=== PATIENT | female | born 1935 | race Caucasian/White ===

== ENCOUNTER 2020-07-25 15:03 | Outpatient (CLI) | payer MEDICARE, SELFPAY ==
[2020-07-25 15:51] LABS: Basophils Percent Auto 0.1 % (0.2-1.2); Eosinophils Absolute Auto 0.1 K/mm3 (0-0.3); Eosinophils Percent Auto 1.5 % (0-4.4); Hematocrit 37.7 % (37.0-47.0); Hemoglobin 12.7 g/dL (12.0-15.0); Immature Granulocyte Absolute 0.03 K/mm3 (0.00-0.031); Immature Granulocyte Percent A 0.4 % (0-0.5); Lymphocytes Absolute Auto 1.51 K/mm3 (0.9-3.2); Lymphocytes Percent Auto 22.6 % (18.3-44.2); Mean Corpuscular HGB Conc 33.7 g/dl (32-36); Mean Corpuscular Hemoglobin 30.9 pg (26-34); Mean Corpuscular Volume 91.7 fl (80-100); Monocytes Absolute Auto 0.5 K/mm3 (0.1-0.6); Monocytes Percent Auto 8.1 % (2.6-8.5); Neutrophils Absolute Auto 4.5 K/mm3 (1.3-6.7); Neutrophils Percent Auto 67.3 % (45.5-73.1); Platelet Count Result 244 k/mm3 (150-375); Red Blood Count 4.11 M/mm3 (4.2-5.4); Red Cell Distribution Width 14.1 % (11.5-14.5); White Blood Count 6.7 K/mm3 (4.5-10.0)
[2020-07-25 16:04] LABS: Alanine Aminotransferase 19 U/L (4-35); Albumin Level 4.1 g/dL (3.5-5.1); Alkaline Phosphatase 84 U/L (38-126); Anion Gap 9 mmol/L (8-16); Aspartate Amino Transferase 29 U/L (14-36); Bilirubin,Total 0.5 mg/dL (0.2-1.3); Blood Urea Nitrogen 16 mg/dL (7-17); Calcium 8.8 mg/dL (8.4-10.2); Carbon Dioxide 28 mmol/L (22-30); Chloride 104 mmol/L (98-107); Cholesterol 244 mg/dL (0-200); Estimated Glomerular Filt Rate 60; Glucose 100 mg/dL (65-105); HDL Direct 50 mg/dL; Potassium 3.1 mmol/L (3.4-5.0); Sodium 141 mmol/L (137-145); Triglycerides 154 mg/dL (<150)
[2020-07-25 16:13] LABS: Add Urine Microscopic? YES; Appearance Urine Clear (Clear); Bilirubin Urine Negative (Negative); Blood Urine 1+ (Negative); Color Urine Yellow (Yellow); Glucose Urine UA Negative (Negative); Ketones Urine Negative (Negative); Leukocyte Esterase Ur 3+ LEU/UL (NEGATIVE); Mucus Urine Few /lpf; Nitrate Urine Negative (Negative); Protein Urine 1+ mg/dL (Negative); Specific Grav Ur 1.025 (1.001-1.035); Squamous Epithelial Cell Urine Moderate /hpf (Few); Urobilinogen Urine Negative mg/dL (<2.0); WBC Urine 51-75 /hpf (0-3)
[2020-07-25 16:20] LABS: LDL Cholesterol Direct 168 mg/dL
== END 2020-07-25 15:04 | disposition home or self-care (01) ==
LOC: ANHLAB 15:05
PROVIDERS: PCP Family Medicine; Visit Provider Nurse Practitioner Family
DX: E03.9 Hypothyroidism, unspecified (principal); N39.0 Urinary tract infection, site not specified; E78.2 Mixed hyperlipidemia; I10 Essential (primary) hypertension
CPT/HCPCS: 36415; 80053; 80061; 81001; 84443; 85025; 87077; 87086; 87088; 87186

== ENCOUNTER → 2020-10-05 15:38 | Outpatient (CLI) | payer MEDICARE, SELFPAY ==
--- NOTE | ~2020-10-05 | MM_ITS ---
EXAMINATION: MM screening kvng BI w derek HISTORY: Screening mammogram TECHNIQUE: Craniocaudal and mediolateral oblique 3-D tomosynthesis images were obtained and synthetic 2-D images were generated. CAD analysis was submitted and interpreted. COMPARISON: 01/15/2012, 10/03/2009 bilateral digital screening mammogram examinations BREAST PARENCHYMAL COMPOSITION: There are scattered areas of fibroglandular density. FINDINGS: .... There is no evidence of suspicious mass, calcification, or architectural distortion to suggest malignancy in either breast. There has been no suspicious interval change. IMPRESSION: 1. No mammographic evidence of malignancy. 2. Recommend routine screening mammography in one year. BI-RADS Category 1: Negative Reviewed, dictated and finalized at location A.
== END ==
PROVIDERS: PCP Family Medicine; Visit Provider Family Medicine
DX: Z12.31 Encounter for screening mammogram for malignant neoplasm of breast (principal)
CPT/HCPCS: 77063; 77067

== ENCOUNTER 2021-07-07 08:33 | Emergency (ER) | payer MEDICARE, SELFPAY ==
--- NOTE | ~2021-07-07 | XR_ITS ---
EXAMINATION: XR_CERV2-3V_CR DATE: 07/07/2021 09:27 INDICATION: Neck pain. Fall 2 days ago. TECHNIQUE: 3 views of cervical spine were obtained. COMPARISON: None. FINDINGS: There is 8 degrees dextrocurvature of cervical spine. There is 2 mm retrolisthesis of C5 on C6 and 2 mm anterolisthesis of C7 on T1. Vertebral body heights are normal. There is severely decrea sed disc height from C3-C4 through C6-C7 and moderate to severely decreased disc height at C7-T1. The re is interbody fusion at C3-C4. There is severe bilateral uncovertebral joint osteoarthritis from C4 -C5 through C6-C7. There is multilevel facet joint osteoarthritis, severe at multiple levels. There i s mild central canal stenosis at C5-C6 and C6-C7. No prevertebral soft tissue swelling. IMPRESSION: 1. Severe cervical spondylosis. Reviewed, dictated and finalized at location A. TENANCE REPAIRMAN
--- NOTE | ~2021-07-07 | XR_ITS ---
EXAMINATION: XR chest 2V DATE: 07/07/2021 09:26 INDICATION: Neck pain. TECHNIQUE: Frontal and lateral views of the chest were obtained. COMPARISON: Chest 2 views 05/08/2019 FINDINGS: There is mild atelectasis in the lower lung zones. No pleural effusion or pneumothorax. The heart size is normal. There is mild chronic anterior wedging of T12. IMPRESSION: 1. Mild atelectasis in the lower lung zones. Reviewed, dictated and finalized at location A. T METAL HELPER
[2021-07-07 08:37] VITALS: BP 194/86; PULSE 69; RESP 13; TEMP 36.3; O2SAT 100
--- NOTE | 2021-07-07 08:42 | ECG_ITS ---
Measurements Intervals [place] Rate: 62 P: -49 UT: 161 QRS: 4 QRSD: 110 T: -12 QT: 453 QTc: 463 Interpretive Statements SINUS RHYTHM BORDERLINE R WAVE PROGRESSION, ANTERIOR LEADS T WAVE ABNORMALITY IN ANTERIOR LEADS- CONSIDER ISCHEMIA BASELINE ARTIFACT- I, II, III, AVR, AVF, V1, V3-V6 ABNORMAL ECG Electronically Signed On 07-07-2021 12:16:19 TEST TECH by Sergey Castellano D.O.
[2021-07-07] MEDS: CYCLOBENZAPRINE HCL 10 MG TABLET 5 MG PO (09:03)
[2021-07-07] MEDS: KETOROLAC 15 MG/ML VIAL (*BKC) IV PUSH (09:03)
[2021-07-07 09:22] LABS: Basophils Percent Auto 0.3 % (0.2-1.2); Eosinophils Absolute Auto 0.1 K/mm3 (0-0.3); Eosinophils Percent Auto 0.9 % (0-4.4); Hematocrit 42.3 % (37.0-47.0); Immature Granulocyte Absolute 0.03 K/mm3 (0.00-0.031); Immature Granulocyte Percent A 0.4 % (0-0.5); Lymphocytes Absolute Auto 2.02 K/mm3 (0.9-3.2); Lymphocytes Percent Auto 25.9 % (18.3-44.2); Mean Corpuscular HGB Conc 33.1 g/dl (32-36); Mean Corpuscular Hemoglobin 31.8 pg (26-34); Mean Corpuscular Volume 96.1 fl (80-100); Mean Platelet Volume 9.3 fl (7.4-10.4); Monocytes Absolute Auto 0.5 K/mm3 (0.1-0.6); Monocytes Percent Auto 6.4 % (2.6-8.5); Neutrophils Absolute Auto 5.2 K/mm3 (1.3-6.7); Neutrophils Percent Auto 66.1 % (45.5-73.1); Platelet Count Result 221 k/mm3 (150-375); Red Cell Distribution Width 14.4 % (11.5-14.5); White Blood Count 7.8 K/mm3 (4.5-10.0)
[2021-07-07 09:35] LABS: Alanine Aminotransferase 23 U/L (4-35); Alkaline Phosphatase 126 U/L (38-126); Anion Gap 10 mmol/L (8-16); Aspartate Amino Transferase 34 U/L (14-36); Bilirubin,Total 0.6 mg/dL (0.2-1.3); Blood Urea Nitrogen 12 mg/dL (7-17); Calcium 9.2 mg/dL (8.4-10.2); Carbon Dioxide 28 mmol/L (22-30); Chloride 103 mmol/L (98-107); Estimated CRCL calculation 35 ml/min; Estimated Glomerular Filt Rate > 60; Glucose 105 mg/dL (65-110); Potassium 3.2 mmol/L (3.4-5.0); Sodium 141 mmol/L (137-145)
[2021-07-07 10:10] VITALS: BP 179/76; PULSE 67; RESP 15; O2SAT 100
[2021-07-07 11:20] VITALS: BP 162/80; PULSE 65; RESP 14; O2SAT 98
[2021-07-07 12:27] VITALS: BP 150/77; PULSE 74; RESP 15; O2SAT 97
--- NOTE | 2021-07-07 12:39 | ED.GENADULT ---
HPI - General Adult General Chief complaint: Neck Pain/Injury Stated complaint: back/neck pain Time Seen by Provider: 07/07/21 08:36 History of Present Illness HPI narrative: Patient is an 85-year-old female who presents ER with neck pain. Began this morning. Worse with turning her head and trying to put on her shirt. No numbness or tingling in the arms or legs but this is limited report given the fact the patient is demented. No alleviating factors noted. Patient with elevated blood pressure here, chart review shows elevated blood pressures with PCP, patient has history of medical noncompliance with medication. Daughter present and is attempting to obtain guardianship over the patient as well as the patient's who is chronically ill. Related Data Home Medications Medication Instructions Recorded Confirmed aspirin 325 mg tablet 325 mg PO DAILY 05/20/19 04/03/21 dicyclomine 10 mg capsule 10 mg PO QID PRN 05/20/19 04/03/21 lisinopril 10 mg tablet 10 mg PO DAILY 05/20/19 04/03/21 Allergies Allergy/AdvReac Type Severity Reaction Status Date / Time No Known Allergies Allergy Verified 04/03/21 13:08 Review of Systems Review of Systems: ROS unobtainable: Yes unobtainable due to mental status PMFSH Past Medical History Medical History (Updated 07/07/21 @ 12:45 by Murali Webster MD) Acquired hypothyroidism Agitated depression B12 deficiency Early onset Alzheimer's dementia without behavioral disturbance Essential (primary) hypertension History of kidney stones Mixed hyperlipidemia Family History Family History Sibling Patient's brother is in good health Family history of hypothyroidism Family history of kidney stones Father Acute myocardial infarction, Onset Age: 64 Patient's father is Mother Family history of diabetes mellitus in first degree relative Social History Social History Smoking status: Never smoker Alcohol intake: never Substance use: never Substance use type: does not use Gender identity (if verbalized by the patient): Female Exam Narrative: GENERAL: Well-appearing, well-nourished, and in no acute distress. HEAD: Normocephalic, atraumatic. NECK: Supple. Increased pain in the paraspinal musculature with turning head laterally. No midline tenderness. CHEST: Clear to auscultation. No respiratory distress. HEART: Regular rate and rhythm. Normal peripheral pulses. EXTREMITIES: Normal range of motion. No edema. NEURO: Alert and oriented x2. PSYCH: Normal mood and affect. Course Course Emergency Course: Patient resting comfortably, feels improved with anti-inflammatories and Flexeril. Discharge home. Vital Signs Vital signs: Vital Signs Temperature 97.4 F L 07/07/21 08:37 Pulse Rate 69 07/07/21 08:37 Respiratory Rate 13 07/07/21 08:37 Blood Pressure 194/86 H 07/07/21 08:37 Pulse Oximetry 100 07/07/21 08:37 Temperature 97.4 F L 07/07/21 08:37 Pulse Rate 74 07/07/21 12:27 Respiratory Rate 15 07/07/21 12:27 Blood Pressure 150/77 H 07/07/21 12:27 Pulse Oximetry 97 07/07/21 12:27 Medical Decision Making Vital Signs Vital Signs: Vital Signs Temperature 97.4 F L 07/07/21 08:37 Pulse Rate 69 07/07/21 08:37 Respiratory Rate 13 07/07/21 08:37 Blood Pressure 194/86 H 07/07/21 08:37 Pulse Oximetry 100 07/07/21 08:37 Temperature 97.4 F L 07/07/21 08:37 Pulse Rate 74 07/07/21 12:27 Respiratory Rate 15 07/07/21 12:27 Blood Pressure 150/77 H 07/07/21 12:27 Pulse Oximetry 97 07/07/21 12:27 Lab Data Result diagrams: 07/07/21 09:06 07/07/21 09:06 Labs: Lab Results 07/07/21 07/07/21 Range/Units 09:06 09:06 WBC 7.8 (4.5-10.0) K/mm3 RBC 4.40 (4.2-5.4) M/mm3 Hgb 14.0 (12.0-15.0) g/dL Hct 42.3 (37.0-47.0) % MCV 96.1 (80-
[2021-07-07 13:04] VITALS: BP 150/77; PULSE 73; RESP 18; O2SAT 97
== END 2021-07-07 13:06 | disposition home or self-care (01) ==
PROVIDERS: Emergency Provider Emergency Medicine; PCP Family Medicine
DX: M54.2 Cervicalgia (principal); E03.9 Hypothyroidism, unspecified; G30.0 Alzheimer's disease with early onset; F02.80 Dementia in other diseases classified elsewhere, unspecified severity, without behavioral disturbance, psychotic disturbance, mood disturbance, and anxiety; I10 Essential (primary) hypertension; Z87.442 Personal history of urinary calculi; E53.8 Deficiency of other specified B group vitamins; E78.2 Mixed hyperlipidemia; M47.12 Other spondylosis with myelopathy, cervical region; Z79.82 Long term (current) use of aspirin; R94.31 Abnormal electrocardiogram [ECG] [EKG]
CPT/HCPCS: 36415; 71046; 72040; 80053; 85025; 93005; 96374; 99284; A9270; J1885

== ENCOUNTER 2022-04-23 14:45 | Emergency (ER) | payer MEDICARE, SELFPAY ==
--- NOTE | ~2022-04-23 | CT_ITS ---
EXAMINATION: CT brain wo con DATE: 04/23/2022 16:47 INDICATION: Head injury. TECHNIQUE: Computed tomography (CT) of the head was performed without intravenous contrast. The mA wa s adjusted according to patient size. Iterative reconstruction technique was employed. The dose-lengt h product was 605.33 mGy-cm. COMPARISON: Head CT 05/10/2016 FINDINGS: There is no intracranial hemorrhage, acute infarction, or abnormal intracranial mass lesion . There is an infarct in the body of right caudate nucleus, likely old. There are scattered areas of low attenuation in the cerebral white matter, which is within normal limits for the patient's age. Th e ventricles are normal in size. There are likely changes of ocular lens replacement surgeries. There is mild mucosal thickening in the ethmoid sinuses. The mastoid air cells are normal. IMPRESSION: 1. 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 Reviewed, dictated and finalized at location A.
--- NOTE | ~2022-04-23 | CT_ITS ---
EXAMINATION: CT cervical spine wo con DATE: 04/23/2022 16:58 INDICATION: Neck pain. Fall. TECHNIQUE: Computed tomography (CT) of the cervical spine was performed without intravenous contrast. Automated exposure control and iterative reconstruction technique were employed. The dose-length pro duct was 129.11 mGy-cm. COMPARISON: None FINDINGS: There is mild scarring at the lung apices. There is 11 degrees dextroscoliosis of cervical spine. There is 2 mm retrolisthesis of C5 on C6. There is interbody fusion at C3-C4. There is severel y decreased disc height at C4-C5, C5-C6, and C6-C7. The following disc levels are specifically discus sed: C2-C3: There is mild bilateral uncovertebral joint osteoarthritis. There is severe bilateral facet korin int osteoarthritis. There is mild bilateral neural foraminal stenosis. There is mild central canal st enosis. C3-C4: There is ankylosis of the uncovertebral joints with moderate hypertrophy. There is ankylosis o f the facet joints with moderate hypertrophy. There is mild bilateral neural foraminal stenosis. Ther e is mild central canal stenosis. C4-C5: There is severe bilateral uncovertebral joint osteoarthritis. There is mild right and severe l eft facet joint osteoarthritis. There is mild right and moderate left neural foraminal stenosis. Ther e is mild central canal stenosis. C5-C6: There is severe bilateral uncovertebral joint osteoarthritis. There is moderate bilateral face t joint osteoarthritis. There is mild bilateral neural foraminal stenosis. There is moderate central canal stenosis. C6-C7: There is severe bilateral uncovertebral joint osteoarthritis. There is mild bilateral facet korin int osteoarthritis. There is mild bilateral neural foraminal stenosis. There is mild central canal st enosis. C7-T1: There is mild bilateral uncovertebral joint osteoarthritis. There is severe right and moderate left facet joint osteoarthritis. There is mild bilateral neural foraminal stenosis. There is no cent ral canal stenosis. IMPRESSION: 1. No fracture. 2. Severe cervical spondylosis. Reviewed, dictated and finalized at location A.
--- NOTE | ~2022-04-23 | CT_ITS ---
EXAMINATION: CT lumbar spine wo con DATE: 04/23/2022 16:59 INDICATION: Low back tenderness. Fall. TECHNIQUE: Computed tomography (CT) of the lumbar spine was performed without intravenous contrast. A utomated exposure control and iterative reconstruction technique were employed. The dose-length produ ct was 851.40 mGy-cm. COMPARISON: None FINDINGS: There is a 5 mm stone in right kidney. There is a 2 mm stone in left kidney. There is 12 de grees dextroscoliosis of lumbar spine. There is 3 mm retrolisthesis of L5 on S1. There is mild chroni c anterior wedging of T11 and T12 vertebral bodies. There is moderately decreased disc height at T12- L1, severely decreased disc height at L1-L2 and L2-L3, moderately decreased disc height at L3-L4, and severely decreased disc height at L4-L5 and L5-S1 with endplate remodeling. The following disc level s are specifically discussed: L1-L2: The disc is bulging. There is mild bilateral facet joint osteoarthritis. There is mild bilater al neural foraminal stenosis. There is mild central canal stenosis. L2-L3: The disc is bulging. There is moderate bilateral facet joint osteoarthritis. There is mild rig ht and moderate left neural foraminal stenosis. There is mild central canal stenosis. L3-L4: The disc is bulging. There is severe right and mild left facet joint osteoarthritis. There is mild bilateral neural foraminal stenosis. There is mild central canal stenosis. L4-L5: The disc is bulging. There is severe right and mild left facet joint osteoarthritis. There is moderate right and mild left neural foraminal stenosis. There is mild central canal stenosis. L5-S1: The disc is bulging. There is mild bilateral facet joint osteoarthritis. There is moderate norma ateral neural foraminal stenosis. There is mild central canal stenosis. IMPRESSION: 1. No fracture. 2. Severe lumbar spondylosis. 3. Lumbar dextroscoliosis. Reviewed, dictated and finalized at location A.
[2022-04-23 14:57] VITALS: BP 148/86; PULSE 90; RESP 16; O2SAT 98
[2022-04-23 16:00] VITALS: BP 181/88; PULSE 97; RESP 16; O2SAT 95
--- NOTE | 2022-04-23 16:27 | PC.NURSE ---
Patient complains of lower back pain. Patient states she is better now and wants to go home.
--- NOTE | 2022-04-23 17:12 | ED.FALL ---
HPI - Fall General Chief Complaint: Fall Stated Complaint: fall Time Seen by Provider: 04/23/22 16:00 History of Present Illness HPI Narrative: Patient states she tripped and fell at the care home today, she is denying pain or any complaints other than to her lower back. Related Data Home Medications Medication Instructions Recorded Confirmed aspirin 325 mg tablet 325 mg PO DAILY 05/20/19 11/13/21 dicyclomine 10 mg capsule 10 mg PO QID PRN 05/20/19 11/13/21 Allergies Allergy/AdvReac Type Severity Reaction Status Date / Time No Known Allergies Allergy Verified 11/13/21 13:24 Review of Systems Review of Systems: CONST: No fever. HEENT: No sore throat C/V: No chest pain RESP: No cough GI: No abdominal pain : No dysuria. M/S: Lower back pain SKIN: No rash. NEURO: [No headache or focal numbness or weakness] PSYCH: [No depression] PMFSH Past Medical History Medical History Acquired hypothyroidism Agitated depression B12 deficiency Early onset Alzheimer's dementia without behavioral disturbance Essential (primary) hypertension History of kidney stones Mixed hyperlipidemia Family History Family History Sibling Patient's brother is in good health Family history of hypothyroidism Family history of kidney stones Father Acute myocardial infarction, Onset Age: 64 Patient's father is Mother Family history of diabetes mellitus in first degree relative Social History Social History Smoking status: Never smoker Alcohol intake: never Substance use: never Substance use type: does not use Gender identity (if verbalized by the patient): Female Course Vital Signs Vital signs: Vital Signs Pulse Rate 90 04/23/22 14:57 Respiratory Rate 16 04/23/22 14:57 Blood Pressure 148/86 H 04/23/22 14:57 Pulse Oximetry 98 04/23/22 14:57 Pulse Rate 97 04/23/22 16:00 Respiratory Rate 16 04/23/22 16:00 Blood Pressure 181/88 H 04/23/22 16:00 Pulse Oximetry 95 04/23/22 16:00 MDM - Fall MDM Narrative Medical decision making narrative: 86-year-old female presents after fall, vital signs stable and on exam she only has some discomfort around her lower back, as she is not a reliable historian I will obtain CT head, C-spine, L-spine. These are negative, patient is ambulating and in fact had managed to walk out of her room earlier and walk all over the ER requiring re-direction. Stable for discharge with return precautions. Discharge Plan Discharge Clinical Impression: Fall, Contusion of lower back Patient Disposition: NH Fpc/Asst Living Condition: Stable Instructions: Antibiotic Form, Fall Prevention for Older Adults (ED) Additional Instructions: Please follow up with your doctor and you can always return for any further issues. Prescriptions: No Action aspirin 325 mg tablet 325 mg PO DAILY dicyclomine 10 mg capsule 10 mg PO QID PRN levothyroxine 88 mcg tablet See Rx Instructions .ROUTE .COMPLEX Qty: 90 2RF Dose Instruction: TAKE 1 TABLET BY MOUTH EVERY DAY Rx Instructions: TAKE 1 TABLET BY MOUTH EVERY DAY cyclobenzaprine 5 mg tablet 5 mg PO TID PRN (Reason: muscle spasm) Qty: 14 0RF ibuprofen 600 mg tablet 600 mg PO TID PRN (Reason: pain) Qty: 14 0RF trazodone 100 mg tablet 100 mg PO QHS Qty: 90 2RF lisinopril 10 mg tablet 10 mg PO DAILY Qty: 90 0RF sertraline [Zoloft] 25 mg tablet 25 mg PO DAILY Qty: 30 2RF Rx Instructions: at bedtime Follow-up/Referrals: Juan Sue MD [Primary Care Provider] - 2 Days
--- NOTE | 2022-04-23 17:26 | PC.NURSE ---
Attempted to call [facility] X2 with no answer.
== END 2022-04-23 17:38 ==
PROVIDERS: Emergency Provider Emergency Medicine; PCP Family Medicine
DX: S30.0XXA Contusion of lower back and pelvis, initial encounter (principal); G30.0 Alzheimer's disease with early onset; F02.80 Dementia in other diseases classified elsewhere, unspecified severity, without behavioral disturbance, psychotic disturbance, mood disturbance, and anxiety; I10 Essential (primary) hypertension; E03.9 Hypothyroidism, unspecified; E53.8 Deficiency of other specified B group vitamins; Z87.442 Personal history of urinary calculi; E78.2 Mixed hyperlipidemia; M47.812 Spondylosis without myelopathy or radiculopathy, cervical region; M47.816 Spondylosis without myelopathy or radiculopathy, lumbar region; W01.0XXA Fall on same level from slipping, tripping and stumbling without subsequent striking against object, initial encounter
CPT/HCPCS: 70450; 72125; 72131; 99284

== ENCOUNTER 2022-05-03 15:18 | Observation (INO) | payer MEDICARE, SELFPAY ==
[2022-05-03] VITALS (43 sets, daily range): BP systolic 139–199; BP diastolic 70–98; PULSE 78–95; RESP 12–23; TEMP 36.4–36.8; O2SAT 93–100; BMI 19.9
--- NOTE | ~2022-05-03 | CT_ITS ---
EXAMINATION: CT cervical spine wo con DATE: 05/03/2022 17:14 INDICATION: Fall with head injury TECHNIQUE: Computed tomography (CT) of the cervical spine was performed without intravenous contrast. Automated exposure control and iterative reconstruction technique were employed. The dose-length pro duct was 193.74 mGy-cm. COMPARISON: 04/23/2022 FINDINGS: Severe osteoarthritis at the atlantoaxial articulation. Partially visualized mild upper thoracic levo curvature. Unchanged 2 mm retrolisthesis C5 on C6. Interbody fusion at C3-C4 as well as fusion across the bilateral C3-C4 facet joints. Vertebral body heights are normal. No fractures. Severe disc heigh t loss at C4-C5, C5-C6 and C6-C7 with prominent Modic type III sclerotic endplate changes at C4-C5. M ild disc height loss at C7-T1. Multilevel moderate to severe cervical facet and uncovertebral osteoar thritis. See the very recent prior CT report for level by level analysis. Small amount of atheroscler otic calcification at the left carotid bulb. Cervical soft tissues are otherwise unremarkable. Mild b iapical pleural-parenchymal scarring IMPRESSION: 1. Severe cervical spondylosis. No acute osseous abnormality. Reviewed, dictated and finalized at location B.
--- NOTE | ~2022-05-03 | XR_ITS ---
XR abdomen/kub 1V DATE: 05/03/2022 18:51 INDICATION: Abdominal pain, constipation TECHNIQUE: Portable supine AP single view COMPARISON: 11/17/2018 CT abdomen pelvis 11/18/2018 obstructive series FINDINGS: There is numerous gas pattern is mild and colon segments and a moderate amount of fecal mat erial in the colon. No bowel obstruction is evident. The psoas shadows are intact. No visceromegaly i s detected. Diffuse osteopenia. There is osteopenia. There is multilevel degenerative disc disease of the lumbar spine. IMPRESSION: Nonspecific abdomen Reviewed, dictated and finalized at Location A. Reviewed, dictated and finalized at location A. IMPRESSION: Nonspecific abdomen
--- NOTE | ~2022-05-03 | XR_ITS ---
XR hip BI 2V w AP pelvis DATE: 05/03/2022 17:33 INDICATION: Fall. Hip pain. TECHNIQUE: AP pelvis. AP and lateral views of each hip. COMPARISON: None FINDINGS: There is prominent degenerative disc disease at L4-5 and particularly L5-S1. Normal alignment at the pubic symphysis and sacroiliac joints. Hip joint spaces are symmetric and rel atively well preserved. No pelvic fracture or bone destruction. No fracture, dislocation, avascular necrosis or bone destruct ion of either hip is detected. IMPRESSION: Degenerative disc disease at L4-5 and L5-S1 Reviewed, dictated and finalized at location A.
--- NOTE | ~2022-05-03 | CT_ITS ---
EXAMINATION: CT brain wo con DATE: 05/03/2022 17:13 INDICATION: Head injury post fall TECHNIQUE: Computed tomography (CT) of the head was performed without intravenous contrast. Sagittal and coronal reconstructions were performed. The mA was adjusted according to patient size. Iterative reconstruction technique was employed. The dose-length product was 908.00 mGy-cm. COMPARISON: head CT dated 04/23/2022 FINDINGS: No fracture. Small old lacunar infarct at the head of the right caudate nucleus. No acute intracrania l hemorrhage, acute infarction or abnormal extra axial fluid collection. There is mild scattered whit e matter hypoattenuation consistent with chronic small vessel ischemic disease. Symmetric prominence of the sulci and ventricles consistent with moderate age-appropriate diffuse cerebral volume loss. No mass/mass effect. Changes of bilateral intraocular lens replacement. The orbits, paranasal sinuses a nd mastoid air cells are normal. IMPRESSION: 1. No fracture or acute intracranial process. 2. Unchanged small old lacunar infarct at the right caudate nucleus. No intra-. Age-related changes i ncluding moderate diffuse volume loss and mild scattered white matter hypoattenuation consistent with chronic small vessel ischemic disease. Reviewed, dictated and finalized at location B. IMPRESSION: 1. No fracture or acute intracranial process. 2. Unchanged small old lacunar infarct at the right caudate nucleus. No intra-. Age-related changes including moderate diffuse volume loss and mild scattered white matter hypoattenuation consistent with chronic small vessel ischemic dise ase.
--- NOTE | ~2022-05-03 | CT_ITS ---
EXAMINATION: CT thoracic lumbar wo con DATE: 05/03/2022 17:15 INDICATION: Fall. Back injury. TECHNIQUE: Computed tomography (CT) of the thoracic and lumbar spine was performed without intravenou s contrast. The mA was adjusted according to patient size. Iterative reconstruction technique was emp loyed. Exam dose: 968.78 mGy-cm total exam DLP. Thoracic spine COMPARISON: 04/19/2022 CT lumbar spine FINDINGS: There is recent mild anterior wedge burst fracture of T12. No other fracture or dislocation or bone destruction is detected. Severe degenerative disc disease and mild retrolisthesis at C5-6 Moderately severe degenerative disc disease at C6-7. Moderate degenerative disc disease at C7-T1. Mild degenerative spurring of the thoracic spine. There is multilevel degenerative disc disease of the lumbar spine, moderately severe at L1-2, severe at L2-3, L4-5 and L5-S1, moderate at L3-4. Incidentally noted is mild sliding hiatal hernia. There is bilateral nephrolithiasis. Diverticulosis of the sigmoid and descending colon. IMPRESSION: Recent moderate anterior wedging T12 burst fracture Degenerative changes of cervical, thoracic and particularly lumbar spine Reviewed, dictated and finalized at Location A. Reviewed, dictated and finalized at location A.
--- NOTE | 2022-05-03 16:00 | ED.FALL ---
HPI - Fall General Chief Complaint: Fall Stated Complaint: fall back pain Time Seen by Provider: 05/03/22 15:21 Source: EMS Mode of arrival: EMS Limitations: dementia History of Present Illness HPI Narrative: Patient is an 86-year-old female with a history of hypertension, dementia, frequent falls, presenting to the emergency department for evaluation of fall off of her 's lap. Apparently, the patient was sitting on her 's lap and then fell forward to the ground. No witnessed head trauma. Patient has been resided at [facility]. Patient is known to have a recent T12 fracture. Patient presenting for evaluation of pelvic pain and lower back pain. EMS to transport the patient in stable condition. The time of assessment, patient is able to state her name, can identify the season. Cannot identify place. Other history limited secondary to dementia. Related Data Home Medications Medication Instructions Recorded Confirmed dicyclomine 10 mg capsule 10 mg PO QID PRN Abdominal Pain 05/20/19 05/03/22 divalproex 125 mg capsule,delayed 125 mg PO Q8H 05/03/22 05/03/22 release sprinkle ibuprofen 800 mg tablet 800 mg PO TID PRN Pain (Scale 05/03/22 05/03/22 Score 4-6) Allergies Allergy/AdvReac Type Severity Reaction Status Date / Time No Known Allergies Allergy Verified 11/13/21 13:24 Review of Systems Review of Systems: ROS unobtainable: Yes unobtainable due to medical condition PMFSH Past Medical History Medical History Acquired hypothyroidism Agitated depression B12 deficiency Early onset Alzheimer's dementia without behavioral disturbance Essential (primary) hypertension History of kidney stones Mixed hyperlipidemia Family History Family History Sibling Patient's brother is in good health Family history of hypothyroidism Family history of kidney stones Father Acute myocardial infarction, Onset Age: 64 Patient's father is Mother Family history of diabetes mellitus in first degree relative Social History Social History Smoking status: Never smoker Alcohol intake: never Substance use: never Substance use type: does not use Gender identity (if verbalized by the patient): Female Spiritual care concerns: No Exam Narrative: GENERAL: Awake, alert, shouting in room HEAD: Normocephalic, atraumatic. EYES: PERRLA and EOMI. ENT: Nares clear, no rhinorrhea or epistaxis. Mucous membranes moist. Cervical collar in place. NECK: Supple. CHEST: No respiratory distress, breathing even and non labored HEART: Regular rate, sinus rhythm ABDOMEN:Non distended, non tender EXTREMITIES: Pelvis appears tender to palpation. It is stable. Patient is able to flex and extend to her lower extremities without difficulty although she does report pain in her lower back. Patient has ecchymosis to her right buttocks. SKIN: Warm, dry, no rash. NEURO:No focal deficits. Alert and oriented x1 Course Vital Signs Vital signs: Vital Signs Pulse Rate 90 05/03/22 15:23 Respiratory Rate 16 05/03/22 15:23 Temperature 97.6 F 05/03/22 22:54 Pulse Rate 85 05/03/22 22:54 Respiratory Rate 18 05/03/22 22:54 Blood Pressure 158/80 H 05/03/22 22:54 Pulse Oximetry 97 05/03/22 23:57 Oxygen Delivery Nasal Cannula 05/03/22 23:57 Oxygen Flow Rate 2 05/03/22 23:57 MDM - Fall MDM Narrative Medical decision making narrative: Patient presented to the emergency department for evaluation of a fall from sitting position. At the time of assessment, patient is quite agitated. Trauma exam is reassuring. Did obtain CT head, cervical spine, thoracic and lumbar spine which is notable for chronic T12 fracture which is known to patient and family. Patient family updated, unfortunately, patient has been quite
--- NOTE | 2022-05-03 16:15 | PC.NURSE ---
pt took gown off has right leg over side rail and yelling. Took c-collar off and threw it on the floor. Sitter place at bedside for safety
[2022-05-03] MEDS: LORazepam INJ (*CRX) 2 MG/ML VIAL IV PUSH (16:37)
[2022-05-03 19:13] LABS: Appearance Urine Clear (Clear); Bilirubin Urine Negative (Negative); Blood Urine Trace-lysed (Negative); Color Urine Yellow (Yellow); Glucose Urine UA Negative (Negative); Ketones Urine 1+ mg/dL (Negative); Leukocyte Esterase Ur Negative LEU/UL (Negative); Nitrate Urine Negative (Negative); Protein Urine Negative (Negative); Specific Grav Ur 1.025 (1.001-1.035); Urobilinogen Urine 0.2 mg/dL (<2.0); pH Urine 6.5 (5.0-9.0)
[2022-05-03 19:14] LABS: Basophils Percent Auto 0.2 % (0.2-1.2); Eosinophils Percent Auto 0.2 % (0-4.4); Hematocrit 44.4 % (37.0-47.0); Hemoglobin 14.3 g/dL (12.0-15.0); Immature Granulocyte Absolute 0.12 K/mm3 (0.00-0.031); Immature Platelet Fraction Pct 2.2 % (0.9-11.2); Lymphocytes Absolute Auto 1.19 K/mm3 (0.9-3.2); Lymphocytes Percent Auto 9.4 % (18.3-44.2); Mean Corpuscular HGB Conc 32.2 g/dl (32-36); Mean Corpuscular Hemoglobin 31.9 pg (26-34); Mean Corpuscular Volume 99.1 fl (80-100); Mean Platelet Volume 9.4 fl (7.4-10.4); Monocytes Absolute Auto 0.8 K/mm3 (0.1-0.6); Monocytes Percent Auto 6.6 % (2.6-8.5); Neutrophils Absolute Auto 10.4 K/mm3 (1.3-6.7); Neutrophils Percent Auto 82.6 % (45.5-73.1); Platelet Count Result 237 k/mm3 (150-375); Red Blood Count 4.48 M/mm3 (4.2-5.4); Red Cell Distribution Width 12.7 % (11.5-14.5); White Blood Count 12.6 K/mm3 (4.5-10.0)
[2022-05-03 19:20] LABS: Anion Gap 15 mmol/L (8-16); Blood Urea Nitrogen 20 mg/dL (7-17); Calcium 8.5 mg/dL (8.4-10.2); Carbon Dioxide 26 mmol/L (22-30); Chloride 102 mmol/L (98-107); Estimated Glomerular Filt Rate > 60; Glucose 99 mg/dL (65-110); Potassium 4.5 mmol/L (3.4-5.0); Sodium 143 mmol/L (137-145)
[2022-05-03 19:34] LABS: Add Urine Microscopic? YES; Mucus Urine Rare /lpf; Squamous Epithelial Cell Urine Rare /hpf (Few); WBC Urine 0-3 /hpf
--- NOTE | 2022-05-03 19:55 | PM.IMHP ---
H&P: HPI History of Present Illness Date/Time: 05/03/22 19:55 Chief Complaint: Fall Narrative: This is an 86-year-old female with past medical history significant for dementia, osteoporosis, multiple recurrent falls, she was brought to the emergency room for evaluation after she was found down she resides at a care home however she has been having recurrent falls just recently was admitted to outside hospital whole workup showed a T12 wedge fracture medically treated and then discharge back to facility however patient has not been doing well and overall has had decline of her functioning. at the time of my visit patient was unable to give any history after she had some sedation for pain control and restlessness. Preliminary workup was significant for: CT of the head was reported as: IMPRESSION: 1. No fracture or acute intracranial process. 2. Unchanged small old lacunar infarct at the right caudate nucleus. No intra-. Age-related changes including moderate diffuse volume loss and mild scattered white matter hypoattenuation consistent with chronic small vessel ischemic disease. CT of cervical spine was reported as: IMPRESSION: 1. Severe cervical spondylosis. No acute osseous abnormality. CT of thoracic and lumbar spine was reported as: IMPRESSION:? Recent moderate anterior wedging T12 burst fracture Degenerative changes of cervical, thoracic and particularly lumbar spine Review of Systems Review of Systems: ROS unobtainable: Yes unobtainable due to mental status ( obtundation, delirium, sedation) PMFSH Past Medical History Medical History Acquired hypothyroidism Agitated depression B12 deficiency Early onset Alzheimer's dementia without behavioral disturbance Essential (primary) hypertension History of kidney stones Mixed hyperlipidemia Family History Family History Sibling Patient's brother is in good health Family history of hypothyroidism Family history of kidney stones Father Acute myocardial infarction, Onset Age: 64 Patient's father is Mother Family history of diabetes mellitus in first degree relative Social History Social History Smoking status: Never smoker Alcohol intake: never Substance use: never Substance use type: does not use Gender identity (if verbalized by the patient): Female Spiritual care concerns: No Meds Home Medications and Allergies Home Medications Medication Instructions Recorded Confirmed Type dicyclomine 10 mg capsule 10 mg PO QID PRN Abdominal Pain 05/20/19 05/03/22 History levothyroxine 88 mcg tablet See Rx Instructions .Route 02/07/21 05/03/22 Rx .COMPLEX #90 tabs cyclobenzaprine 5 mg tablet 5 mg PO TID PRN muscle spasm #14 07/07/21 05/03/22 Rx tabs trazodone 100 mg tablet 100 mg PO QHS #90 tabs 08/25/21 05/03/22 Rx lisinopril 10 mg tablet 10 mg PO DAILY #90 tabs 10/03/21 05/03/22 Rx sertraline 25 mg tablet (Zoloft) 25 mg PO DAILY #30 tabs 03/14/22 05/03/22 Rx divalproex 125 mg capsule,delayed 125 mg PO Q8H 05/03/22 05/03/22 History release sprinkle ibuprofen 800 mg tablet 800 mg PO TID PRN Pain (Scale 05/03/22 05/03/22 History Score 4-6) Allergies Allergy/AdvReac Type Severity Reaction Status Date / Time No Known Allergies Allergy Verified 11/13/21 13:24 Vital Signs Vital Signs - 24 hr 05/03/22 15:32 Temperature 98.2 F Pulse Rate 83 Respiratory Rate 16 Blood Pressure 199/97 H Pulse Oximetry 97 Oxygen Delivery Room Air Exam Narrative: patient is laying in a stretcher Const: General: comfortable, no acute distress, well developed, lethargic, patient obtunded and thin Nutritional Appearance: average body habitus Orientation/consciousness: lethargic HENMT: Head: normal to inspection, normocephalic and atraumatic Ear
--- NOTE | 2022-05-03 20:18 | PC.NURSE ---
COVID swab done at 20:16
[2022-05-03 21:02] LABS: SARS-CoV-2 RNA PCR Negative
--- NOTE | 2022-05-03 22:28 | PC.NURSE ---
bladder scanned and >335ml noted in bladder, ERP notified and almendarez placed for urinary retention
--- NOTE | 2022-05-03 22:38 | ADMGEN ---
This patient, Michelle Medrano, was admitted to 2 Medical Room 257-01. Patient/family oriented to hospital policies and general routines including ID bracelet, bed and alarms, visiting hours, pain management, procedures, bathroom and other care routines, personal items, smoking policy, room service/diet, and visiting hours. Information on how to activate the Rapid Response Team has been discussed. Patient/Family are encouraged to report perceived risks to care and to ask questions if they do not understand what they are told or what they should do.
[2022-05-03] MEDS: HYDROmorphone HCL INJ (*CRX) 1 MG/ML SYR 0.5 MG IV PUSH (23:51)
[2022-05-04 04:24] VITALS: BP 183/74; PULSE 77; RESP 18; TEMP 35.8; O2SAT 100
[2022-05-04] MEDS: HYDROmorphone HCL INJ (*CRX) 1 MG/ML SYR 0.5 MG IV PUSH ×4 (07:58→21:02)
--- NOTE | 2022-05-04 08:25 | PM.IMPN ---
Progress Note: A&P Assessment and Plan (1) Cerebral atherosclerosis: Code(s): I67.2 - Cerebral atherosclerosis Status: Acute (2) Failure to thrive in adult: Code(s): R62.7 - Adult failure to thrive Status: Acute (3) Major depressive disorder, single episode, unspecified: Code(s): F32.9 - Major depressive disorder, single episode, unspecified Status: Acute (4) Chronic insomnia: Code(s): F51.04 - Psychophysiologic insomnia Status: Acute (5) Dysuria: Code(s): R30.0 - Dysuria Status: Acute (6) Agitated depression: Code(s): F32.2 - Major depressive disorder, single episode, severe without psychotic features Status: Acute (7) Acquired hypothyroidism: Code(s): E03.9 - Hypothyroidism, unspecified Status: Acute (8) B12 deficiency: Code(s): E53.8 - Deficiency of other specified B group vitamins Status: Acute (9) Early onset Alzheimer's dementia without behavioral disturbance: Code(s): G30.0 - Alzheimer's disease with early onset; F02.80 - Dementia in other diseases classified elsewhere, unspecified severity, without behavioral disturbance, psychotic disturbance, mood disturbance, and anxiety Status: Acute (10) Essential (primary) hypertension: Code(s): I10 - Essential (primary) hypertension Status: Acute (11) Mixed hyperlipidemia: Code(s): E78.2 - Mixed hyperlipidemia Status: Acute (12) History of kidney stones: Code(s): Z87.442 - Personal history of urinary calculi Status: Acute (13) Acute on chronic urinary retention: Code(s): R33.9 - Retention of urine, unspecified Status: Acute (14) Burst fracture of T12 vertebra: Code(s): S22.081A - Stable burst fracture of T11-T12 vertebra, initial encounter for closed fracture Status: Acute (15) Falls frequently: Code(s): R29.6 - Repeated falls Status: Acute (16) Back pain: Code(s): M54.9 - Dorsalgia, unspecified Status: Acute (17) Advanced age: Code(s): R54 - Age-related physical debility Status: Acute (18) Protein calorie malnutrition: Code(s): E46 - Unspecified protein-calorie malnutrition Status: Acute Plan 05/03/22 ?bed rest ?fall precautions ?PT/OT consult ?supportive care ?pain management ?medical treatment ?Sr in ?continue trazodone, sertraline. currently holding meds due to altered mental status resume as needed 05/04/22 pt doing ok receiving Dilaudid? at that time of my visit back pain improved daughter would like pt to come home w hospice no further workup or treatment at this time? other than symptomatic control audience coordinator is aware and referral sent today dc home in stable condition on Percocet PRN for back pain to care of hospice physician Subjective Date/time seen: 05/04/22 08:25 Review of Systems Review of Systems: ROS unobtainable: Yes unobtainable due to mental status Exam Narrative: GEN: NAD, AAOx1 upset minimally uncooperative HEENT: NCAT, MMM, EOMI Neck: no JVD Abd: soft, NT, ND, bowel sounds normoactive Ext: moves all, no cyanosis, no clubbing, no edema Neuro: moves all extremities equally Psych: mood? and affect congruent agitated? and combative Objective Data Vital Signs Vital Signs: Vital Signs - 24 hr 05/04/22 09:47 05/04/22 14:25 05/04/22 21:03 Temperature 98.6 F 97.9 F Pulse Rate 81 74 Respiratory Rate 16 18 Blood Pressure 161/67 H 166/89 H Pulse Oximetry 98 99 Oxygen Delivery Room Air 05/04/22 20:00 05/05/22 04:21 Temperature 97.5 F L Pulse Rate 87 Respiratory Rate 18 Blood Pressure Pulse Oximetry 100 Oxygen Delivery Room Air Intake/Output Intake/Output: Intake & Output 05/02/22 05/03/22 05/04/22 05/05/22 23:59 23:59 23:59 23:59 Intake Total 0 0 Output Total 800 800 200 Balance -800 -800 -200 Meds/Results Medications: Active Medicat
[2022-05-04] MEDS: HEPARIN SODIUM 5,000 UNITS/ML VIAL 5000 UNITS SUB-Q (08:44)
--- NOTE | 2022-05-04 13:16 | PC.NURSE ---
On 05/04/22, the student, [Lucita Hayden], provided care and completed [facility] documentation on this patient. I have reviewed the student's documentation and agree with the findings.
--- NOTE | 2022-05-04 13:32 | PM.DS ---
DS: Admitting Diagnosis Discharge Date 05/04/22 Admitting Diagnosis (1) Falls frequently: ?Code(s): R29.6 - Repeated falls ?Status:?Acute (2) Back pain: ?Code(s): M54.9 - Dorsalgia, unspecified ?Status:?Acute (3) Burst fracture of T12 vertebra: ?Code(s): S22.081A - Stable burst fracture of T11-T12 vertebra, initial encounter for closed fracture ?Status:?Acute ? ? ? (4) Acute on chronic urinary retention: ?Code(s): R33.9 - Retention of urine, unspecified ?Status:?Acute (5) Early onset Alzheimer's dementia without behavioral disturbance: ?Code(s): G30.0 - Alzheimer's disease with early onset; F02.80 - Dementia in other diseases classified elsewhere, unspecified severity, without behavioral disturbance, psychotic disturbance, mood disturbance, and anxiety ?Status:?Acute DS: Discharge Diagnosis Discharge Diagnosis (1) Back pain: Code(s): M54.9 - Dorsalgia, unspecified Status: Acute (2) Burst fracture of T12 vertebra: Code(s): S22.081A - Stable burst fracture of T11-T12 vertebra, initial encounter for closed fracture Status: Acute (3) Falls frequently: Code(s): R29.6 - Repeated falls Status: Acute (4) Advanced age: Code(s): R54 - Age-related physical debility Status: Acute (5) Protein calorie malnutrition: Code(s): E46 - Unspecified protein-calorie malnutrition Status: Acute (6) Failure to thrive in adult: Code(s): R62.7 - Adult failure to thrive Status: Acute (7) Acute on chronic urinary retention: Code(s): R33.9 - Retention of urine, unspecified Status: Acute (8) Mixed hyperlipidemia: Code(s): E78.2 - Mixed hyperlipidemia Status: Acute (9) Essential (primary) hypertension: Code(s): I10 - Essential (primary) hypertension Status: Acute (10) Early onset Alzheimer's dementia without behavioral disturbance: Code(s): G30.0 - Alzheimer's disease with early onset; F02.80 - Dementia in other diseases classified elsewhere, unspecified severity, without behavioral disturbance, psychotic disturbance, mood disturbance, and anxiety Status: Acute (11) B12 deficiency: Code(s): E53.8 - Deficiency of other specified B group vitamins Status: Acute (12) Acquired hypothyroidism: Code(s): E03.9 - Hypothyroidism, unspecified Status: Acute (13) Agitated depression: Code(s): F32.2 - Major depressive disorder, single episode, severe without psychotic features Status: Acute (14) Chronic insomnia: Code(s): F51.04 - Psychophysiologic insomnia Status: Acute (15) Major depressive disorder, single episode, unspecified: Code(s): F32.9 - Major depressive disorder, single episode, unspecified Status: Acute DS: Summary Hospital Course Reason for hospitalization: Chief Complaint: Fall Narrative: ?This is an 86-year-old female with past medical history significant for dementia, osteoporosis, multiple recurrent falls, she was brought to the emergency room for evaluation after she was found down she resides? at a custodial however she has been having recurrent falls just recently was admitted to outside hospital whole workup showed a T12 wedge fracture medically treated and then discharge back to facility however patient has not been doing well and overall has had decline of her functioning.? at the time of my visit patient was unable to give any history after she had some sedation for pain control and restlessness.? Preliminary workup was significant for: ?CT of the head was reported as: IMPRESSION: 1. No fracture or acute intracranial process. 2. Unchanged small old lacunar infarct at the right caudate nucleus. No intra-. Age-related changes including moderate diffuse volume loss and mild scattered white matter hypoattenuation consistent with chronic small vessel ischemic disease. ?CT of cervical spine wa
[2022-05-04 14:25] VITALS: BP 161/67; PULSE 81; RESP 16; TEMP 37; O2SAT 98
--- NOTE | 2022-05-04 17:38 | PCPTNOTE ---
Attempted PT eval, pt has a pending neurosurgery consult and bed rest orders at this time. RN aware. Will follow.
[2022-05-04 21:03] VITALS: BP 166/89; PULSE 74; RESP 18; TEMP 36.6; O2SAT 99
[2022-05-05] MEDS: HYDROmorphone HCL INJ (*CRX) 1 MG/ML SYR 0.5 MG IV PUSH (02:50)
[2022-05-05 04:21] VITALS: PULSE 87; RESP 18; TEMP 36.4; O2SAT 100
--- NOTE | 2022-05-05 08:10 | PM.DS ---
DS: Admitting Diagnosis Discharge Date 05/05/22 Admitting Diagnosis (1) Falls frequently: ?Code(s): R29.6 - Repeated falls ?Status:?Acute (2) Back pain: ?Code(s): M54.9 - Dorsalgia, unspecified ?Status:?Acute (3) Burst fracture of T12 vertebra: ?Code(s): S22.081A - Stable burst fracture of T11-T12 vertebra, initial encounter for closed fracture ?Status:?Acute ? ? ? (4) Acute on chronic urinary retention: ?Code(s): R33.9 - Retention of urine, unspecified ?Status:?Acute (5) Early onset Alzheimer's dementia without behavioral disturbance: ?Code(s): G30.0 - Alzheimer's disease with early onset; F02.80 - Dementia in other diseases classified elsewhere, unspecified severity, without behavioral disturbance, psychotic disturbance, mood disturbance, and anxiety ?Status:?Acute DS: Discharge Diagnosis Discharge Diagnosis (1) Cerebral atherosclerosis: Code(s): I67.2 - Cerebral atherosclerosis Status: Acute (2) Failure to thrive in adult: Code(s): R62.7 - Adult failure to thrive Status: Acute (3) Protein calorie malnutrition: Code(s): E46 - Unspecified protein-calorie malnutrition Status: Acute (4) Advanced age: Code(s): R54 - Age-related physical debility Status: Acute (5) Back pain: Code(s): M54.9 - Dorsalgia, unspecified Status: Acute (6) Falls frequently: Code(s): R29.6 - Repeated falls Status: Acute (7) Burst fracture of T12 vertebra: Code(s): S22.081A - Stable burst fracture of T11-T12 vertebra, initial encounter for closed fracture Status: Acute (8) Acute on chronic urinary retention: Code(s): R33.9 - Retention of urine, unspecified Status: Acute (9) History of kidney stones: Code(s): Z87.442 - Personal history of urinary calculi Status: Acute (10) Mixed hyperlipidemia: Code(s): E78.2 - Mixed hyperlipidemia Status: Acute (11) Essential (primary) hypertension: Code(s): I10 - Essential (primary) hypertension Status: Acute (12) Early onset Alzheimer's dementia without behavioral disturbance: Code(s): G30.0 - Alzheimer's disease with early onset; F02.80 - Dementia in other diseases classified elsewhere, unspecified severity, without behavioral disturbance, psychotic disturbance, mood disturbance, and anxiety Status: Acute (13) B12 deficiency: Code(s): E53.8 - Deficiency of other specified B group vitamins Status: Acute (14) Acquired hypothyroidism: Code(s): E03.9 - Hypothyroidism, unspecified Status: Acute (15) Agitated depression: Code(s): F32.2 - Major depressive disorder, single episode, severe without psychotic features Status: Acute (16) Dysuria: Code(s): R30.0 - Dysuria Status: Acute (17) Chronic insomnia: Code(s): F51.04 - Psychophysiologic insomnia Status: Acute (18) Major depressive disorder, single episode, unspecified: Code(s): F32.9 - Major depressive disorder, single episode, unspecified Status: Acute DS: Summary Hospital Course Reason for hospitalization: Chief Complaint: Fall Narrative: ?This is an 86-year-old female with past medical history significant for dementia, osteoporosis, multiple recurrent falls, she was brought to the emergency room for evaluation after she was found down she resides? at a assisted however she has been having recurrent falls just recently was admitted to outside hospital whole workup showed a T12 wedge fracture medically treated and then discharge back to facility however patient has not been doing well and overall has had decline of her functioning.? at the time of my visit patient was unable to give any history after she had some sedation for pain control and restlessness.? Preliminary workup was significant for: ?CT of the head was reported as: IMPRESSION: 1. No fracture or acute
[2022-05-05] MEDS: lisinopriL 10 MG TABLET PO (09:38)
[2022-05-05] MEDS: oxyCODONE/ACETAMINOPHEN (*CRX) 5-325 MG TABLET 1 TABLET PO (09:38)
[2022-05-05] MEDS: SERTRALINE HCL 25 MG TABLET PO (09:38)
== END 2022-05-05 11:12 | disposition hospice, home (50) ==
LOC: ANHED 19:26 → ANH2MED 05-04 00:09
PROVIDERS: Emergency Medicine; Admitting Provider Internal Medicine; Emergency Provider Emergency Medicine; PCP Nurse Practitioner Family; Visit Provider Hospitalist
DX: I67.2 Cerebral atherosclerosis (principal); R62.7 Adult failure to thrive; E46 Unspecified protein-calorie malnutrition; R54 Age-related physical debility; M54.9 Dorsalgia, unspecified; R29.6 Repeated falls; S22.081A Stable burst fracture of T11-T12 vertebra, initial encounter for closed fracture; R33.9 Retention of urine, unspecified; Z87.442 Personal history of urinary calculi; E78.2 Mixed hyperlipidemia; I10 Essential (primary) hypertension; F32.2 Major depressive disorder, single episode, severe without psychotic features; G30.0 Alzheimer's disease with early onset; E53.8 Deficiency of other specified B group vitamins; E03.9 Hypothyroidism, unspecified; F51.04 Psychophysiologic insomnia; R30.0 Dysuria; Z20.822 Contact with and (suspected) exposure to COVID-19; Z96.0 Presence of urogenital implants; R10.2 Pelvic and perineal pain; F02.80 Dementia in other diseases classified elsewhere, unspecified severity, without behavioral disturbance, psychotic disturbance, mood disturbance, and anxiety; M51.36 Other intervertebral disc degeneration, lumbar region; M51.37 Other intervertebral disc degeneration, lumbosacral region; M47.812 Spondylosis without myelopathy or radiculopathy, cervical region; Z86.73 Personal history of transient ischemic attack (TIA), and cerebral infarction without residual deficits; Z79.1 Long term (current) use of non-steroidal anti-inflammatories (NSAID); Z79.899 Other long term (current) drug therapy
CPT/HCPCS: 36415; 70450; 72125; 72128; 72131; 73521; 74018; 80048; 81001; 85025; 85055; 96372; 96374; 96375; 96376; 99285; A9270; G0378; J1170; J1644; J2060; U0003; U0005